=== PATIENT | female | born 1975 | race Two or more races ===

== ENCOUNTER 2017-10-12 14:47 | Inpatient (IN) ==
[2017-10-12] MEDS ORDERED: MEPERIDINE 50 MG/1 ML VIAL IV PRN (15:06)
[2017-10-12] MEDS ORDERED: ONDANSETRON 4 MG/2 ML VIAL IV PRN (15:06)
[2017-10-12] MEDS ORDERED: BUTORPHANOL 2 MG/ML VIAL IV PRN (15:06)
[2017-10-12] MEDS ORDERED: LACTATED RINGERS 1,000 ML IV SCH (15:30)
[2017-10-12] MEDS ORDERED: OXYTOCIN/LR 20 UNIT/1,000 ML BAG IV SCH (15:30)
[2017-10-12 15:32] LABS: Basophils # 0.1 10*3/uL (0.0-0.2); Basophils % 0.4 % (0.0-0.8); Eosinophils # 0.2 10*3/uL (0.0-0.87); Eosinophils % 1.7 % (0.00-10.9); Hematocrit 39.2 VOL% (35.7-47.0); Hemoglobin 13.2 GM/DL (12.0-16.0); Immature Granulocytes % 1.4 %; Immature Granulocytes Absolute 0.16 #; Lymphocytes # 2.8 10*3/uL (1.4-4.0); Lymphocytes % 23.8 % (21.3-54.2); Mean Corpuscular HGB Conc 33.7 GM/DL (32-36); Mean Corpuscular Hemoglobin 31 PG (27-34); Mean Corpuscular Volume 92.5 FL (87-102); Mean Platelet Volume 10.4 FL (9.6-12.0); Monocytes # 1.2 10*3/uL (0.11-0.8); Monocytes % 9.9 % (1.7-12.7); NRBC # 0.04 10*3/uL; Neutrophils # 7.4 10*3/uL (1.4-7.4); Neutrophils % 62.8 % (38.7-73.9); Platelet Count 342 T/CUMM (130-400); Red Blood Count 4.24 MC/CUMM (3.8-5.5); Red Cell Distribution Width 14.9 % (9.3-17.3); White Blood Count 11.7 T/CUMM (4-12)
[2017-10-12] MEDS ORDERED: DINOPROSTONE 10 MG VAG.INSERT VAG ONE (16:00)
[2017-10-12 16:02] LABS: Alanine Aminotransferase 15 U/L (13-56); Albumin 2.2 G/DL (3.4-5.0); Alkaline Phosphatase 237 U/L (45-117); Aspartate Amino Transferase 14 U/L (0-37); Bilirubin,Total < 0.39 MG/DL (0.2-1.0); Blood Urea Nitrogen 7 MG/DL (7-18); Calcium 8.5 MG/DL (8.5-10.1); Glucose 80 MG/DL (74-106); Osmolality,Calculated 273.5 MOS/KG (273-304); Potassium 4.4 MMOL/L (3.5-5.1); Sodium 139 MMOL/L (136-145); Total Protein 6.2 G/DL (6.4-8.3)
[2017-10-13] MEDS ORDERED: OXYTOCIN/LR 20 UNIT/1,000 ML BAG IV SCH
[2017-10-13] MEDS: AMPICILLIN INJ 2,000 MG in SODIUM CHLORIDE 0.9% 100 ML IV SCH ×4 (00:35→17:12)
[2017-10-13] MEDS ORDERED: FAMOTIDINE 20 MG/2 ML VIAL IV ONE (09:15)
[2017-10-13] MEDS ORDERED: ePHEDrine 50 MG/ML AMP IV PRN (09:15)
[2017-10-13] MEDS ORDERED: ONDANSETRON 4 MG/2 ML VIAL IV ONE (09:15)
[2017-10-13] MEDS ORDERED: PROMETHAZINE 25 MG/1 ML VIAL IM ONE (09:15)
[2017-10-13] MEDS ORDERED: hydrOXYzine HCL 25 MG/1 ML VIAL IM PRN (09:15)
[2017-10-13] MEDS ORDERED: CITRIC ACID/SODIUM CITRATE 30 ML UDCUP PO ONE (09:15)
[2017-10-13] MEDS ORDERED: diphenhydrAMINE 50 MG/1 ML VIAL IV PRN ×2 (09:15)
[2017-10-13] MEDS ORDERED: LACTATED RINGERS 1,000 ML IV ONE (09:15)
[2017-10-13] MEDS ORDERED: fentaNYL 2 MCG/ROPIV 0.2% EPID 150 ML EPIDURAL SCH (09:30)
[2017-10-13 10:52] LABS: Apearance,Urine CLEAR (Clear); Bacteria,Urine Occasional /HPF (Few); Bilirubin,Urine Negative (Negative); Blood, Urine Negative (Negative); Glucose,Urine (UA) Negative (Negative); Ketones,Urine Negative (Negative); Mucus,Urine Occasional /LPF (Occasional); Nitrite,Urine Negative (Negative); Protein,Urine Negative; RBC,Urine 2 /HPF (0-4); Squamous Epithelial Cell,Urine Occasional /HPF (0-10); Urine Color Yellow (Yellow); Urine Specific Gravity 1.011 (1.001-1.035); Urine Urobilinogen < 2.0 EU/DL (0.2-1.0); WBC,Urine <1 /HPF (0-6)
[2017-10-13] MEDS ORDERED: IBUPROFEN 800 MG TABLET PO ONE (21:33)
[2017-10-13] MEDS ORDERED: ACETAMINOPHEN 325 MG TABLET PO PRN (23:32)
[2017-10-13] MEDS ORDERED: BISACODYL 10 MG SUPP RECTAL PRN (23:32)
[2017-10-13] MEDS ORDERED: LACTATED RINGERS 1,000 ML IV SCH (23:32)
[2017-10-13] MEDS ORDERED: MAGNESIUM HYDROXIDE SUSP 30 ML UDCUP PO PRN (23:32)
[2017-10-14] MEDS: DOCUSATE SODIUM 100 MG CAPSULE PO SCH ×4 (01:57→20:56)
[2017-10-14] MEDS: IBUPROFEN 800 MG TABLET PO PRN ×2 (05:50→16:18)
[2017-10-14 05:51] LABS: Basophils # 0.1 10*3/uL (0.0-0.2); Basophils % 0.4 % (0.0-0.8); Eosinophils # 0.1 10*3/uL (0.0-0.87); Eosinophils % 0.7 % (0.00-10.9); Hematocrit 35.9 VOL% (35.7-47.0); Hemoglobin 12.5 GM/DL (12.0-16.0); Immature Granulocytes % 0.8 %; Immature Granulocytes Absolute 0.15 #; Lymphocytes % 22.1 % (21.3-54.2); Mean Corpuscular HGB Conc 34.8 GM/DL (32-36); Mean Corpuscular Hemoglobin 32 PG (27-34); Mean Corpuscular Volume 91.1 FL (87-102); Mean Platelet Volume 10.7 FL (9.6-12.0); Monocytes # 1.5 10*3/uL (0.11-0.8); Monocytes % 8.3 % (1.7-12.7); Neutrophils # 12.4 10*3/uL (1.4-7.4); Neutrophils % 67.7 % (38.7-73.9); Platelet Count 324 T/CUMM (130-400); Red Blood Count 3.94 MC/CUMM (3.8-5.5); Red Cell Distribution Width 14.9 % (9.3-17.3); White Blood Count 18.3 T/CUMM (4-12)
[2017-10-14] MEDS: MULTIVITAMIN (PRENATAL) TABLET PO SCH (10:12)
[2017-10-14] MEDS ORDERED: MEPERIDINE 25 MG/1 ML VIAL IV PRN (14:32)
[2017-10-15] MEDS ORDERED: FAMOTIDINE 20 MG TABLET PO ONE (05:00)
[2017-10-15] MEDS ORDERED: DIAZEPAM 5 MG TABLET PO ONE (06:00)
[2017-10-15] MEDS ORDERED: ACETAMINOPHEN INJ 1,000 MG in PREMIX 1 EACH IV ONE (06:30)
[2017-10-15] MEDS ORDERED: KETOROLAC 30 MG/1 ML VIAL IV ONE (06:30)
[2017-10-15] MEDS ORDERED: ceFAZolin 1,000 MG VIAL ONE (07:39)
[2017-10-15] MEDS ORDERED: TISSUE ADHESIVE 1 EACH APPLICATOR TOP ONE (07:39)
[2017-10-15] MEDS ORDERED: ALBUTEROL/IPRATROPIUM 3 ML NEB RESP TX ONE ×2 (08:27→08:30)
[2017-10-15] MEDS ORDERED: PROPOFOL 200 MG/20 ML VIAL IV ONE (08:41)
[2017-10-15] MEDS ORDERED: SEVOFLURANE 1 UNIT/15 MINUTE INH ONE (08:41)
[2017-10-15] MEDS ORDERED: fentaNYL 100 MCG/2 ML VIAL ONE (08:42)
[2017-10-15] MEDS ORDERED: MIDAZOLAM 2 MG/2 ML VIAL ONE (08:42)
[2017-10-15] MEDS ORDERED: ePHEDrine 50 MG/ML AMP ONE (08:43)
[2017-10-15] MEDS ORDERED: SUCCINYLCHOLINE 200 MG/10 ML VIAL ONE (08:43)
[2017-10-15] MEDS ORDERED: ROCURONIUM 100 MG/10 ML VIAL IV ONE (08:43)
[2017-10-15] MEDS ORDERED: ACETAMINOPHEN 1,000 MG/100 ML VIAL IV ONE (12:27)
[2017-10-15 12:56] VITALS: BP 138/81
[2017-10-15] MEDS: DOCUSATE SODIUM 100 MG CAPSULE PO SCH (13:46)
[2017-10-15] MEDS: MULTIVITAMIN (PRENATAL) TABLET PO SCH (13:46)
== END 2017-10-15 13:05 | disposition home or self-care (01) | DRG 541 ==
LOC: N.LDOUT 14:47 → N.LD 14:50 → N.OB 10-13 22:30
PROVIDERS: ADMIT Obstetrics & Gynecology; ATTEND Obstetrics & Gynecology